=== PATIENT | female | born 1995 | race Caucasian/White ===

== ENCOUNTER 2017-12-28 17:24 | Emergency (ER) | payer OTHER ==
[~2017-12-28] VITALS: Ht 165.1 cm; Wt 54.4 kg
[2017-12-28 17:32] VITALS: Ht 165.1 cm; Wt 54.4 kg
[2017-12-28 19:26] LABS: microscopic required? NO
[2017-12-28 19:33] LABS: UA SPECIFIC GRAVITY <=1.005 (1.005-1.035); urine erythrocyte NEGATIVE (NEGATIVE)
[2017-12-28 19:42] LABS: AMPHETAMINE QUAL UR NONE DETECTED (NEG <=1000)
[2017-12-28 20:55] LABS: BASOPHIL % 0.7 % (0-2); PLATELET COUNT 165 x10^3mcL (130-400)
[2017-12-28 20:57] LABS: RED CELL DISTRIBUTION WIDTH 14.9 % (11.5-14.5)
[2017-12-29 00:16] LABS: CALCIUM 8.1 mg/dL (8.5-10.1); CARBON DIOXIDE 25.6 mmol/L (21-32); CHLORIDE SERUM 108 mmol/L (98-107); CREATININE SERUM 0.5 mg/dL (0.6-1.0); GFR1 > 60 mL/min; GLUCOSE SERUM 85 mg/dL (74-106); POTASSIUM SERUM 3.8 mmol/L (3.5-5.1); SODIUM SERUM 143 mmol/L (136-145)
[2017-12-29 00:33] VITALS: BP 126/95
[2017-12-29 00:33] LABS: ALBUMIN 3.9 g/dL (3.4-5.0); ALKALINE PHOSPHATASE 127 U/L (46-116); ALT/SGPT 26 U/L (14-59); AST/SGOT 23 U/L (15-37); BILIRUBIN TOTAL 0.2 mg/dL (0.20-1.00); LIPASE 86 IU/L (73-393); TOTAL PROTEIN, SERUM 7.3 g/dL (6.4-8.2)
== END 2017-12-29 01:24 | disposition home or self-care (01) ==
LOC: ED 17:24
PROVIDERS: Emergency Medicine
DX: F10.129 Alcohol abuse with intoxication, unspecified (principal); R41.82 Altered mental status, unspecified
CPT/HCPCS: 82962; G0480; J7030; Q0092